=== PATIENT | female | born 1960 | race Caucasian/White ===

== ENCOUNTER 2023-03-17 08:48 | Emergency (ER) | payer OTHER, SELFPAY ==
--- NOTE | 2023-03-17 08:53 | ED.GENADULT ---
HPI - General Adult General Chief complaint: Ear Stated complaint: bilateral ear discomfort Time Seen by Provider: 03/17/23 08:53 Source: patient Mode of arrival: ambulatory Limitations: no limitations History of Present Illness HPI narrative: 63-year-old female patient presents to the [facility] with complaints of bilateral ear pain that started this morning about 3:00 a.m.. Patient states that she had some congestion to her nose yesterday and use the Neti pot to try and flush her sinuses. Patient states she woke up at this morning then with 10/10 pain to bilateral ears. Patient denies any fevers, runny nose or sore throat. Denies any chest pain, shortness of breath. Denies any nausea, vomiting or diarrhea. Patient states she did take 3 Tylenol this morning prior to arrival. Related Data Allergies Allergy/AdvReac Type Severity Reaction Status Date / Time No Known Allergies Allergy Verified 03/17/23 09:07 Review of Systems Review of Systems: CONSTITUTIONAL: Denies fever, chills, or sweats. EYES: Denies visual changes, redness, or discharge. ENT: Denies rhinorrhea, congestion, sore throat, Positive bilateral otalgia. CARDIOVASCULAR: Denies chest pain, palpitations, or edema. RESPIRATORY: Denies cough or dyspnea. GASTROINTESTINAL: Denies abdominal pain, nausea, vomiting, or diarrhea. GENITOURINARY: Denies dysuria or hematuria. SKIN: Denies rash or itching. MUSCULOSKELETAL: Denies back pain, joint pain, or myalgia. NEUROLOGIC: Denies headache, numbness, or weakness. PSYCHIATRIC: Denies anxiety or depression. [facility] Past Medical History Medical History (Updated 03/17/23 @ 09:17 by SAVAGE Christensen) Frequent sinus infections Comments At the time of my signature I agree with nursing past medical history, surgical, social, and family history. There is no relevant family history pertinent to the presenting complaint. Exam Narrative: GENERAL: Well-appearing, well-nourished, and in no acute distress. HEAD: Normocephalic, atraumatic. EYES: PERRLA and EOMI. ENT: Nares clear, no rhinorrhea or epistaxis. Mucous membranes moist. posterior pharynx with no erythema, tonsillar enlargement, exudates or lesions present. Bilateral TMs do appear to have erythema the left canal does appear to have be swollen with some pus pockets noted in the canal. NECK: Supple. No lymphadenopathy CHEST: Clear to auscultation. No respiratory distress. HEART: Regular rate and rhythm. No murmur heard. Normal peripheral pulses. ABDOMEN: Soft, nontender, nondistended, normal active bowel sounds. EXTREMITIES: Normal range of motion. No edema. SKIN: Warm, dry, no rash. NEURO: No focal deficits. Alert and oriented x3. Course Course Level of Care: Express Care Visit Vital Signs Vital signs: Vital Signs Temperature 36.4 C L 03/17/23 09:05 Pulse Rate 73 03/17/23 09:05 Respiratory Rate 18 03/17/23 09:05 Blood Pressure 158/84 H 03/17/23 09:05 Pulse Oximetry 100 03/17/23 09:05 Oxygen Delivery Room Air 03/17/23 09:05 Temperature 36.4 C L 03/17/23 09:05 Pulse Rate 73 03/17/23 09:05 Respiratory Rate 18 03/17/23 09:05 Blood Pressure 158/84 H 03/17/23 09:05 Pulse Oximetry 100 03/17/23 09:05 Oxygen Delivery Room Air 03/17/23 09:05 Vital signs reviewed. The patient has been informed that they may have pre-hypertension or Hypertension based on a BP reading in the department. I recommend that the patient call the primary care provider listed on their discharge instructions or a physician of their choice this week to arrange follow up for further evaluation of possible pre-hypertension or Hypertension Medical Decision Making MDM Narrative Medical decision making narrative: Plan of care for patient is discharge home with antibiotics for bilateral ear infection along with an antibiotic ear drop for the left ear as well as a daily antihistamine and a daily nasal steroid to help prevent further infect
[2023-03-17 09:05] VITALS: BP 158/84; PULSE 73; RESP 18; TEMP 36.4; O2SAT 100
== END 2023-03-17 09:17 | disposition home or self-care (01) ==
PROVIDERS: Emergency Provider Nurse Practitioner Family
DX: H60.502 Unspecified acute noninfective otitis externa, left ear (principal); H66.92 Otitis media, unspecified, left ear
CPT/HCPCS: 99203; G0463